=== PATIENT | male | born 1955 | race Caucasian/White ===

== ENCOUNTER 2017-12-28 06:59 | Day surgery (SDC) | payer OTHER ==
--- NOTE | 2017-12-26 13:53 | EKG ---
Test Date: 2017-12-26 Test Time: 13:04:47 [employer] Lineman: RUDY MEASUREMENT RESULTS: Intervals: Rate: 68 MD: QRSD: 92 QT: 372 QTc: 395 [place]: P: MD: QRS: 10 T: 140 INTERPRETIVE STATEMENTS: Atrial fibrillation Marked ST abnormality, possible lateral subendocardial injury Abnormal ECG Compared to ECG 02/19/2003 07:03:00 ST (T wave) deviation now present Sinus rhythm no longer present T-wave abnormality no longer present Electronically Signed On 12-26-17 13:53:02 CDT by Collins Haynes
--- NOTE | 2017-12-26 13:58 | RAD REPORT ---
EXAM DESCRIPTION: RAD - Chest Pa And Lat (2 Views) - 12/26/2017 1:50 pm CLINICAL HISTORY: preop Chest pain. COMPARISON: CHEST PA AND LAT 2 VIEW dated 05/24/2011; CHEST PA AND LAT 2 VIEW dated 05/04/2011; CHEST P A AND LAT 2 VIEW dated 04/27/2011; CHEST PA AND LAT 2 VIEW dated 07/28/2004 FINDINGS: The lungs are clear. The heart is mildly enlarged in size with changes of a prior sternoto my seen. No displaced fractures. IMPRESSION: Mild cardiomegaly.
[2017-12-26 14:02] LABS: Absolute Lymphocytes (CBC) 1.3 K/uL (0.7-4.9); Absolute Monocytes 0.6 K/uL (0.1-1.3); Absolute Neutrophil 4.2 K/uL (1.8-8.0); Basophils % 0.7 % (0-1.3); Eosinophils % 3.3 % (0-4.4); Hematocrit 43.8 % (39.6-49.0); Lymphocytes % 20.5 % (15.3-44.8); MCV 89.2 fL (80-100); MPV 8.4 fL (7.6-11.3); Monocytes % 10.1 % (3.3-12.3)
[2017-12-26 14:17] LABS: Protime INR 1.36
--- OUTSIDE RECORDS SUMMARY | 2017-12-28 07:04 | XMS REPORT ---
:1955 Author Organization [employer] Care Team Providers Name Role Phone CONCHITA SWENSON Provider Role Unavailable Encounters Encounter Location Date 10-21-2014 follow-up [place] Oct 23, 2014 Update medications Conchita Sw[facility], [place] Oct 23, 2014 CPE Conchita [place], [place] June 04, 2014 Lab Results Conchita [place], [place] June 06, 2014 Health Issue Conchita Sw[place], [place] Oct 21, 2014 Problems Problem Type Condition ICD-9 Code Onset Dates Condition Status Problem Allergic rhinitis 477.9 Active Problem Asthma 493.90 Active Social History Social History Element Qualifiers Date Reported Tobacco Use:Never . Are you a: never smoker Oct 21, 2014 Use of recreational / street drugs? . Answer: No Oct 21, 2014 Do you have pets? . Status: No Oct 21, 2014 Marital Status: . Oct 21, 2014 Caffeine intake? . Status: Yes, What type: Coffee, Oct 21, 2014 1 - 2 cup(s) a day Do you exercise? . Answer: Yes, Type: walking Oct 21, 2014 Do you drink alcohol? . 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
--- OUTSIDE RECORDS SUMMARY | 2017-12-28 07:04 | XMS REPORT ---
:1955 [facility] Providers Name Role Phone MARI HARRIS Provider Role Unavailable Allergies, Adverse Reactions, Alerts Substance Reaction Event Type all nuts anaphylaxis Non Drug Allergy potatoes respiratory issues Non Drug Allergy Encounters Encounter Location Date 10-21-2014 follow-up Con[place]ita Ru[place], [place] Oct 23, 2014 Update medications Conchita Ruiz [facility], [place] Oct 23, 2014 sick Conchita Ruiz [place], [place] Oct 21, 2014 sick Conchita Ruiz [place], [place] Jan 05, 2015 CPE Conchita Ruiz [place], [place] June 04, 2014 Lab Results Conchita Ruiz MD, [place] June 06, 2014 Health Issue Conchita Ruiz MD, [place] Oct 21, 2014 cold sx Conchita Ruiz [place], [place] May 11, 2015 Problems Problem Type Condition ICD-9 Code Onset Dates Condition Status Problem Unspecified asthma, J45.909 Active uncomplicated Problem Allergic rhinitis, unspecified J30.9 Active Problem 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, mild intermittent, with acute exacerbation Assessment Allergic rhinitis, unspecified J30.9 Active Assessment 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, mild intermittent, with acute exacerbation Assessment Sinusitis J32.9 Active Assessment Unspecified asthma, J45.909 Active uncomplicated Medications Medication Code System Code Instructions Start End Date Status Dosage Date Medrol (Anotnio) MEDISPAN 55832-88 4 MG Orally as May 10April Active as directed 56-04 directed 2015 Zyrtec Allergy MEDISPAN 99234-02 10 MG Orally Active 1 tablet as 04-43 Once a day needed Aspirin MEDISPAN 30489-18 81 MG Orally Active 1 tablet 14-07 Once a day Mucinex MEDISPAN 27332-02 600 MG Orally Active 1 tablet as 98-58 every 12 hrs needed Cefdinir MEDISPAN 43741-16 300 MG Orally May 10April Active 1 capsule 60-06 every 12 hrs 2015 Metoprolol Unknown 0 50 mg Orally Active 1 tablet Succinate twice a day (bid) [facility] 85377-62 250-50 MCG/DOSE Active 1 puff 96-00 Inhalation Twice a day Social History Social History Element Qualifiers Date Reported Tobacco Use: . Are you a: never smoker May 11, 2015 Use of recreational / street drugs? . Answer: No May 11, 2015 Do you have pets? . Status: No May 11, 2015 Marital Status: . May 11, 2015 Caffeine intake? . Status: Yes, What type: Coffee, May 11, 2015 1 - 2 cup(s) a day Do you exercise? . Answer: Yes, Type: walking May 11, 2015 Do you drink alcohol? . 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, 2015 Family history Qualifier Description Comment Date Reported Maternal Grandmother Comment not available May 11, 2015 Paternal Grandmother Comment not available May 11, 2015 Siblings alive Comment not available May 11, 2015 Maternal Grandfather Comment not available May 11, 2015 Children alive Comment not available May 11, 2015 Father alive DM, asthma May 11, 2015 Paternal Grandfather Comment not available May 11, 2015 Mother alive HTN, vertigo May 11, 2015 Other: Comment not available May 11, 2015 Vital Signs Date/Time: May 11, 2015 Blood Pressure Diastolic 70 mm Hg Blood Pressure Systolic 124 mm Hg Temperature 97.1 F Weight 262 lbs Height 74 in Summary Purpose eClinicalWorks Submission
--- OUTSIDE RECORDS SUMMARY | 2017-12-28 07:04 | XMS REPORT ---
:1955 [facility] Team Providers Name Role Phone CONCHITA SWENSON Provider Role Unavailable Encounters Encounter Location Date 10-21-2014 follow-up Conchita [place], [place] Oct 23, 2014 Update medications Conchita Swenson MD, [place] Oct 23, 2014 sick Conchita Sw[place] MD, [place] Oct 21, 2014 sick Conchita Swenson MD, [place] Jan 05, 2015 CPE Conchita Sw[place] MD, [place] June 04, 2014 med refills Conchita Swenson MD, [place] July 24, 2015 Lab Results Conchita Swenson MD, [place] June 06, 2014 Health Issue Conchita Sw[place] MD, [place] Oct 21, 2014 Re:RE:feet pain Conchita Sw[place], [place] July 23, 2015 cold sx Conchita Sw[place] MD, [place] May 11, 2015 feet pain Conchita Sw[place], [place] July 23, 2015 Problems Problem Type Condition ICD-9 Code Onset Dates Condition Status Problem Unspecified asthma, J45.909 Active uncomplicated Problem Allergic rhinitis, unspecified J30.9 Active Problem 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 Are you a: never smoker July 22, 2015 Use of recreational / street drugs? . Answer: No July 22, 2015 Do you have pets? . Status: No July 22, 2015 Marital Status: . July 22, 2015 Caffeine intake? . Status: Yes, What type: Coffee, July 22, 2015 1 - 2 cup(s) a day Do you exercise? . Answer: Yes, Type: walking July 22, 2015 Do you drink alcohol? . 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
--- OUTSIDE RECORDS SUMMARY | 2017-12-28 07:04 | XMS REPORT | Continuity of Care Document ---
:1955 Author Organization Interface Problems Problem Status Onset Classification Date Comments Source Date Reported Unspecified Active Problem 10/20/2015 2.16.840. asthma, 1.650069. uncomplicated 4.391.11. 81750 Allergic rhinitis, Active Problem 10/20/2015 2.16.840. unspecified 1.394768. 4.391.11. 57969 Reactive airways Active Problem 10/20/2015 2.16.840. dysfunction 1.209311. syndrome, mild 4.391.11. intermittent, with 71418 acute exacerbation Allergic rhinitis Active Problem 01/12/2015 2.16.840. 1.220076. 4.391.11. 16859 Asthma Active Problem 01/12/2015 2.16.840. 1.916769. 4.391.11. 68787 Strep pharyngitis Active Diagnosis 11/20/2014 2.16.840. 1.066565. 4.391.11. 37865 Acute serous Active Diagnosis 01/12/2015 2.16.840. otitis media of 1.188188. left ear, 4.391.11. recurrence not 14946 specified Sinusitis Active Diagnosis 05/13/2015 2.16.840. 1.170402. 4.391.11. 27415 Pain of left foot Active Diagnosis 07/27/2015 2.16.840. 1.949966. 4.391.11. 07281 Encounter for Active Diagnosis 07/27/2015 2.16.840. general adult 1.620549. medical 4.391.11. examination with 63518 abnormal findings Pain in right foot Active Diagnosis 07/27/2015 2.16.840. 1.580716. 4.391.11. 87199 Rhinosinusitis Active Diagnosis 10/20/2015 2.16.840. 1.794196. 4.391.11. 37839 Medications Medication Details Route Status Patient Ordering Order Source Instructions Provider Date Amoxicillin 1 tablet Orally Active 875 MG Orally [place] 2.16.84 every 12 hrs 016 0.1.113 883.4.3 91.11.2 6004 Advair Diskus 1 puff Inhalation Active 250-50 MCG/DOSE L.V. [facility] 2.16.84 Inhalation 016 0.1.113 Twice a day 883.4.3 91.11.2 6004 Meloxicam 1 tablet Orally Active 15 MG Orally L.V. [facility] 2.16.84 Once a day 016 0.1.113 883.4.3 91.11.2 6004 Medrol (Antonio) as Orally Active 4 MG Orally as [place]ARRIS .16. directed directed 016 0.1.113 883.4.3 91.11.2 6004 Cefdinir 1 capsule Orally Active 300 MG Orally [place] 2.16.84 every 12 hrs 016 0.1.113 883.4.3 91.11.2 6004 Cefdinir 1 capsule Orally Active 300 MG Orally [place] 2.16.84 twice a day 015 0.1.113 (bid) 883.4.3 91.11.2 6004 PredniSONE 1 tablet Orally Active 10 mg Orally [place] .16.84 with food twice a day 015 0.1.113 or milk (bid) 883.4.3 91.11.2 6004 Cefdinir 1 capsule Orally Active 300 MG Orally [facility] 2.16.84 every 12 hrs 015 0.1.113 883.4.3 91.11.2 6004 EpiPen as Intramuscular Active 1 MG/ML L.V. [facility] 04.14.83 directed Intramuscular 0.1.113 as directed 883.4.3 91.11.2 6004 Advair Diskus 1 puff Inhalation Active 250-50 MCG/DOSE [facility] 04.14.83 Inhalation 0.1.113 Twice a day 883.4.3 91.11.2 6004 ProAir HFA 2 puffs as Inhalation Active 108 (90 Base) L.V. [facility] 04.14.83 needed MCG/ACT 0.1.113 Inhalation 883.4.3 every 4 hrs 91.11.2 6004 Flonase 1 spray in Nasally Active 50 MCG/ACT [facility] 2.16.84 each Nasally Once a 0.1.113 nostril day 883.4.3 91.11.2 6004 Metoprolol 1 tablet Orally Active 50 mg Orally [place] 2.16.84 Succinate twice a day 0.1.113 (bid) 883.4.3 91.11.2 6004 Aspirin 1 tablet Orally Active 81 MG Orally [place] 2.16.84 Once a day 0.1.113 883.4.3 91.11.2 6004 Mucinex 1 tablet Orally Active 600 MG Orally [place] 2.16.84 as needed every 12 hrs 0.1.113 883.4.3 91.11.2 6004 Zyrtec 1 tablet Orally Active 10 MG Orally [place] 2.16.84 Allergy as needed Once a day 0.1.113 883.4.3 91.11.2 6004 Allergies, Adverse Reactions, Alerts Substance Category Reaction Severity Reaction Status Date Comments Source type Reported N.K.D.A. Adverse Info Not Adverse Active 2.16.84 Reaction Available Reaction 5 0.1.113 883.4.3 91.11.2 6004 all nuts Adverse anaphylaxis Adverse Active 2.16.84 Reaction Reaction 6 0.1.113 883.4.3 91.11.2 6004 potatoes Adverse respiratory Adverse Active 2.16.84 Reaction issues Reaction 6 0.1.113 883.4.3 91.11.2 6004 Immunizations Immunization Date Given Site Status Last Updated Comments Source FLUZONE 10/21/2014 completed 2.16.840.1 QUADRIVALENT .522255.4. INFLUENZA 391.11.260 04 Results Order Results Value Reference Date Interpretation Comments Source Name Range Vital Signs Vital Sign Value Date Comments Source Diastolic (mm Hg) 86 10/09/2015 2.16.840.1.13348 3.4.391.11.38056 Systolic (mm Hg) 126 10/09/2015 2.16.840.1.76194 3.4.391.11.58521 Temperature Oral (F) 96.5 F 10/09/2015 2.16.840.1.79331 3.4.391.11.18854 Weight 270 10/09/2015 2.16.840.1.63441 3.4.391.11.68891 Height 74 10/09/2015 2.16.840.1.95197 3.4.391.11.05660 Diastolic (mm Hg) 80 07/22/2015 2.16.840.1.34701 3.4.391.11.07516 Systolic (mm Hg) 120 07/22/2015 2.16.840.1.10958 3.4.391.11.32259 Temperature Oral (F) 97.4 F 07/22/2015 2.16.840.1.07854 3.4.391.11.68010 Weight 260 07/22/2015 2.16.840.1.93423 3.4.391.11.03411 Height 74 07/22/2015 2.16.840.1.41664 3.4.391.11.03993 Diastolic (mm Hg) 70 05/11/2015 2.16.840.1.06959 3.4.391.11.44906 Systolic (mm Hg) 124 05/11/2015 2.16.840.1.02818 3.4.391.11.54453 Temperature Oral (F) 97.1 F 05/11/2015 2.16.840.1.06011 3.4.391.11.98483 Weight 262 05/11/2015 2.16.840.1.31338 3.4.391.11.29178 Height 74 05/11/2015 2.16.840.1.75176 3.4.391.11.84787 Diastolic (mm Hg) 82 01/05/2015 2.16.840.1.69033 3.4.391.11.58352 Systolic (mm Hg) 126 01/05/2015 2.16.840.1.32658 3.4.391.11.55304 Temperature Oral (F) 96.8 F 01/05/2015 2.16.840.1.65486 3.4.391.11.71983 Weight 268 01/05/2015 2.16.840.1.36432 3.4.391.11.57458 Height 74 01/05/2015 2.16.840.1.95804 3.4.391.11.40645 Diastolic (mm Hg) 80 10/21/2014 2.16.840.1.80253 3.4.391.11.20579 Systolic (mm Hg) 132 10/21/2014 2.16.840.1.92683 3.4.391.11.49962 Temperature Oral (F) 97.9 F 10/21/2014 2.16.840.1.44685 3.4.391.11.08782 Weight 268 10/21/2014 2.16.840.1.77532 3.4.391.11.72885 Height 74 10/21/2014 2.16.840.1.75508 3.4.391.11.92211 Encounters Location Location Encounter Encounter Reason Attending ADM ND Status Source Details Type Number For Provider Date Date Visit [facility] CPE [id number] 06/04 06/04 2.16.84 Leela 92-40z8-c1q 0.1.113 MARILEE CORREA 0-6837zv704 883.4.3 bfe 91.11.2 6004 [place] CPE 6sj568a4-5u 06/04 06/04 2.16.84 Leela 92-2uc1-650 0.1.113 MARILEE CORREA b-z97v37790 883.4.3 15b 91.11.2 6004 [place] CPE 989k0tj6-75 06/04 06/04 2.16.84 Leela 8f-418d-ab4 0.1.113 MARILEE CORREA b-yhf60y899 883.4.3 967 91.11.2 6004 [place] CPE 20348x10-0s 06/04 06/04 2.16.84 Leela e2-4320-94f 0.1.113 MARILEE CORREA 6-crzlh5896 883.4.3 bd2 91.11.2 6004 [place] CPE vrby0904-25 06/04 06/04 2.16.84 Leela d9-478c-826 /2014 0.1.113 MD, [place] c-re6cq1655 883.4.3 1cd 91.11.2 6004 [place] CPE d92jqp04-47 06/04 06/04 2.16.84 Leela, b3-4383-a4b /2014 0.1.113 MD, PA d-nm706ur65 883.4.3 71d 91.11.2 6004 [place] CPE 032l04m8-48 06/04 06/04 2.16.84 Leela df-5e88-805 /2014 0.1.113 MD, PA f-uw88d5z1e 883.4.3 498 91.11.2 6004 [place] CPE 84w4ucf7-0j 06/04 06/04 2.16.84 Leela, fd-46s9-9e6 0.1.113 , PA 1-az58582yu 883.4.3 e85 91.11.2 6004 [place] CPE 53156e5w-y7 06/04 06/04 2.16.84 Leela, 9a-43aa-917 0.1.113 , PA 6-jl8u787i0 883.4.3 d9b 91.11.2 6004 [place] CPE y576a910-9i 06/04 06/04 2.16.84 Leela e7-4906-8ba 0.1.113 , PA 2-0wco8f5un 883.4.3 4fc 91.11.2 6004 [place] CPE 45jr4qj1-1u 06/04 06/04 2.16.84 Leela, 65-4396-a00 0.1.113 , PA 9-0188m60lr 883.4.3 11b 91.11.2 6004 [facility] Lab Results bd1953r0-90 06/06 06/06 2.16.84 Leela, 89-4838-889 0.1.113 , PA 4-4g07zw3bl 883.4.3 d38 91.11.2 6004 [facility] Lab Results 1p65u6dn-i9 06/06 06/06 2.16.84 Leela, a7-80k2-b0h 0.1.113 MD, PA brein-0566vxop0 883.4.3 089 91.11.2 6004 [facility] Lab Results i5v867nk-0y 06/06 06/06 2.16.84 Leela, a8-480e-b9d 0.1.113 MD, PA d-5ddq0n60d 883.4.3 9f3 91.11.2 6004 [facility] Lab Results 719a52p2-2r 06/06 06/06 2.16.84 Leela, ea-426a-9f8 0.1.113 MD, PA 0-06n0072h2 883.4.3 496 91.11.2 6004 [facility] Lab Results 489cn51r-ur 06/06 06/06 2.16.84 Le[place] f0-56s6-r3b 0.1.113 MD, PA a-83h70rqd6 883.4.3 eec 91.11.2 6004 [place] Lab Results 9153o4q9-97 06/06 06/06 2.16.84 Leela, 6b-9q03-le4 0.1.113 MD, PA 3-2556e2w89 883.4.3 c47 91.11.2 6004 [facility] Lab Results 8862cfx1-9q 06/06 06/06 2.16.84 Leela, 4f-465e-a55 0.1.113 MD, PA c-n9i726b48 883.4.3 f1e 91.11.2 6004 [facility] Lab Results 2f962w7e-62 06/06 06/06 2.16.84 Leela, 54-3b1g-78i 0.1.113 MD, PA 4-60l9c2522 883.4.3 e6e 91.11.2 6004 [facility] Lab Results 84h7569j-h2 06/06 06/06 2.16.84 Leela, 41-2cc3-z2a /2014 0.1.113 , PA 9-3527k0902 883.4.3 ee0 91.11.2 6004 [facility] Lab Results 58iq9zaj-y1 06/06 06/06 2.16.84 Leela 3a-4935-907 /2014 0.1.113 , PA e-9k0psvhyn 883.4.3 cd0 91.11.2 6004 [facility] Lab Results ksv352b7-0i 06/06 06/06 2.16.84 Leela f7-3j7o-76u 0.1.113 , PA 0-10331718g 883.4.3 37f 91.11.2 6004 [facility] Health Issue 095jfag2-72 10/21 10/21 2.16.84 Leela 69-0m5a-z34 0.1.113 , PA b-1b70g804u 883.4.3 2e6 91.11.2 6004 [facility] Issue 0dj2lt1d-o6 10/21 10/21 2.16.84 Leela e6-45ff-8a8 0.1.113 , PA f-gs24h7j40 883.4.3 f49 91.11.2 6004 [facility] Issue 5pxwn744-8v 10/21 10/21 2.16.84 Le[place] e4-5v96-dfq /2014 0.1.113 , PA f-638g3j369 883.4.3 86d 91.11.2 6004 [facility] Issue 27hm3a07-8o 10/21 10/21 2.16.84 Le[place] d4-8cg1-cd3 0.1.113 , PA c-30a1ae0m9 883.4.3 bbb 91.11.2 6004 [facility] Issue 731jjc05-o2 10/21 10/21 2.16.84 Leela f5-4v25-sak /2014 0.1.113 , PA 6-hy959zf14 883.4.3 84a 91.11.2 6004 [facility] Issue 6q6k29y8-t2 10/21 10/21 2.16.84 Leela, 93-4650-a42 /2014 0.1.113 , PA b-40273175a 883.4.3 610 91.11.2 6004 [facility] Issue 9c1rw099-xy 10/21 10/21 2.16.84 Leela 01-435f-aa6 /2014 0.1.113 MD PA a-12yeoq1w7 883.4.3 bb7 91.11.2 6004 [facility] Issue l90p61cm-r9 10/21 10/21 2.16.84 Le[place] ed-40fd-a59 0.1.113 , PA d-k7343jwn1 883.4.3 ffb 91.11.2 6004 [facility] Issue p9tx2b2y-ae 10/21 10/21 2.16.84 Leela 6a-4023-b40 0.1.113 MARILEE CORREA 1-795p94u8h 883.4.3 599 91.11.2 6004 [facility] Issue l9311227-8c 10/21 10/21 2.16.84 Leela b4-4210-841 0.1.113 MARILEE CORREA 7-3j6kxj0s9 883.4.3 085 91.11.2 6004 [facility] Health Issue 6iv773sa-23 10/21 10/21 2.16.84 Leela 21-4177-93a 0.1.113 MARILEE CORREA 6-m8hc4018v 883.4.3 5ea 91.11.2 6004 [place] sick 6m72r6on-93 10/21 10/21 2.16.84 Leela 77-4914-89c 0.1.113 MD, PA 1-8d7632g09 883.4.3 c70 91.11.2 6004 [place] sick 0n1s303p-bo 10/21 10/21 2.16.84 Leela, 24-73x7-3xa 0.1.113 , PA 5-579930n49 883.4.3 a59 91.11.2 6004 [place] sick ko7n1924-0m 10/21 10/21 2.16.84 [place] 1a-44z8-6s6 0.1.113 MD, PA d-tvj130365 883.4.3 a0b 91.11.2 6004 [place] sick 9y543m14-l2 10/21 10/21 2.16.84 [place] c6-40k3-rc8 0.1.113 , PA e-ql00svi49 883.4.3 e12 91.11.2 6004 [place] sick 47u293iq-pd 10/21 10/21 2.16.84 Le[place] 99-1o80-go2 0.1.113 , PA 6-540634808 883.4.3 a5a 91.11.2 6004 [facility] sick xa3ngnz5-2l 10/21 10/21 2.16.84 Leela, 22-4bbe-b46 0.1.113 , PA 0-mt565s968 883.4.3 65c 91.11.2 6004 [facility] sick p183d3iq-q1 10/21 10/21 2.16.84 [facility] 8b-4k5b-259 0.1.113 MD, PA f-snp4t6ja5 883.4.3 52e 91.11.2 6004 [facility] sick xec4v18o-63 10/21 10/21 2.16.84 [facility] 59-4caa-b7f 0.1.113 , PA c-ad4v2h743 883.4.3 226 91.11.2 6004 [facility] Update 183070bz-t2 10/23 10/23 2.16.84 Leela, medications 04-4dfb-b46 /2014 0.1.113 , PA 1-81t2m8cya 883.4.3 9ec 91.11.2 6004 [facility] Update 1a75v3e6-40 10/23 10/23 2.16.84 Leela, medications a2-4673-9ac 0.1.113 , PA 6-j816scv45 883.4.3 d58 91.11.2 6004 [facility] Update c6xry961-a8 10/23 10/23 2.16.84 Leela, medications cc-4138-ae0 0.1.113 , PA c-pw640ecj7 883.4.3 477 91.11.2 6004 [facility] Update 4j1g9698-eh 10/23 10/23 2.16.84 Leela, medications 59-424b-9be 0.1.113 , PA 1-42934n341 883.4.3 652 91.11.2 6004 [facility] Update j8035n01-74 10/23 10/23 2.16.84 Le[facility], medications cf-1z78-x8l /2014 0.1.113 MARILEE CORREA 1-mi938lec2 883.4.3 5e3 91.11.2 6004 [facility] Update b4l475kh-44 10/23 10/23 2.16.84 Leela, medications 7c-4bj6-u56 0.1.113 MD PA 5-32ks88tm1 883.4.3 4a2 91.11.2 6004 [facility] Update 294tk7r8-01 10/23 10/23 2.16.84 Leela, medications 4f-34a7-re3 0.1.113 MD PA f-596817424 883.4.3 f6d 91.11.2 6004 [place] Update 74dg9587-12 10/23 10/23 2.16.84 Leela, medications a1-4il6-x22 /2014 0.1.113 , PA 9-5b93367u5 883.4.3 ee8 91.11.2 6004 [place] Update q1yg5xcb-41 10/23 10/23 2.16.84 Leela, medications d5-6a6w-6zq /2014 0.1.113 , PA 7-z2748e369 883.4.3 867 91.11.2 6004 [place] Update b111a7he-10 10/23 10/23 2.16.84 Leela, medications e6-5qz7-1b6 /2014 0.1.113 , PA 5-474kzz186 883.4.3 f43 91.11.2 6004 [place] 10-21-2014 a10p13t6-91 10/23 10/23 2.16.84 Leela, follow-up 27-5kv2-370 0.1.113 , PA 6-h058307m0 883.4.3 f58 91.11.2 6004 [place] 10-21-2014 43474461-99 10/23 10/23 2.16.84 Leela, follow-up 7b-6k88-raw 0.1.113 , PA b-e7fk7f90a 883.4.3 ffd 91.11.2 6004 [place] 10-21-2014 mli82791-h5 10/23 10/23 2.16.84 Leela, follow-up de-4356-87d 0.1.113 , PA 5-3x2166qxl 883.4.3 813 91.11.2 6004 [place] 10-21-2014 h3e7bhgp-zj 10/23 10/23 2.16.84 Leela, follow-up 2f-82t3-09o 0.1.113 , PA f-5v6gs6878 883.4.3 13d 91.11.2 6004 [place] 10-21-2014 2j0z856x-5l 10/23 10/23 2.16.84 Leela, follow-up 29-0i06-556 /2014 0.1.113 , PA a-9321m6443 883.4.3 e2c 91.11.2 6004 [place] 10-21-2014 5za42to1-04 10/23 10/23 2.16.84 Leela, follow-up 0a-0io3-d1t 0.1.113 , PA kenneth-292799xhw 883.4.3 37e 91.11.2 6004 [place] 10-21-2014 4sj565b6-hg 10/23 10/23 2.16.84 Leela, follow-up 89-2f09-8h5 0.1.113 , MARILEE cooper-186m1wg72 883.4.3 f06 91.11.2 6004 [place] 10-21-2014 9f64a63q-q2 10/23 10/23 2.16.84 Leela, follow-up 09-41q3-fm8 0.1.113 , MARILEE b-0a5558fle 883.4.3 9ee 91.11.2 6004 [place] 10-21-2014 m0q83wvf-kr 10/23 10/23 2.16.84 Leela, follow-up 60-4943-805 0.1.113 MD PA 7-4i71v157w 883.4.3 53a 91.11.2 6004 [place] 10-21-2014 rlj0kj2y-ao 10/23 10/23 2.16.84 Leela, follow-up c5-63u6-gx6 0.1.113 MD PA 8-32606170t 883.4.3 yuridia 91.11.2 6004 [place] Update s5z3519l-m0 10/23 10/23 2.16.84 Leela, medications 44-4714-a82 /2014 0.1.113 MD PA 7-831818039 883.4.3 58e 91.11.2 6004 [place] 10-21-2014 me8x0x49-94 10/23 10/23 2.16.84 Leela, follow-up 2d-1a9m-m99 0.1.113 , PA 5-7p95i72t8 883.4.3 62f 91.11.2 6004 [place] sick 35sb6160-v8 01/05 01/05 2.16.84 Leela, 0f-6y35-426 0.1.113 , PA 7-8p35o920x 883.4.3 a64 91.11.2 6004 [place] sick 026d71n1-7c 01/05 01/05 2.16.84 Leela, 43-444b-8bf 0.1.113 , PA 6-38298c036 883.4.3 cad 91.11.2 6004 [place] sick 7490294t-14 01/05 01/05 2.16.84 Leela, 49-12s2-807 0.1.113 , PA 6-6k33i350r 883.4.3 1b8 91.11.2 6004 [place] sick 7toooep6-z5 01/05 01/05 2.16.84 Leela be-0it3-54a 0.1.113 , PA c-91q9xu9qd 883.4.3 886 91.11.2 600 [facility] sick wlt82281-z1 01/05 01/05 2.16.84 [place], b5-59t8-y26 0.1.113 MD, PA a-381k8b108 883.4.3 87b 91.11.2 6004 [place] sick 0e465962-1d 01/05 01/05 2.16.84 [place] c4-43r6-1u1 0.1.113 , PA d-791z00g07 883.4.3 44f 91.11.2 6004 [place] sick 3oq7u5hk-8l 01/05 01/05 2.16.84 [place], 9a-5w0f-pc0 /2014 0.1.113 MD, PA 3-j8b489m4e 883.4.3 b55 91.11.2 6004 [place] cold sx q04i526x-1h 05/10 05/10 2.16.84 [place], 18-4187-a3b /2015 0.1.113 , PA f-656gze76v 883.4.3 b7a 91.11.2 6004 [place] cold sx m5j4l573-83 05/10 05/10 2.16.84 [place], a9-475f-bc1 /2015 0.1.113 , PA 3-7714d1hg6 883.4.3 5e6 91.11.2 6004 [place] cold sx l918c822-20 05/10 05/10 2.16.84 Le[place], 11-478e-84a 0.1.113 , PA 3-30bt371w2 883.4.3 098 91.11.2 6004 [place] cold sx 868v5725-jl 05/10 05/10 2.16.84 Leela 58-4931-811 /2015 0.1.113 , PA 8-8h5423376 883.4.3 c3c 91.11.2 6004 [place] cold sx 069g35d0-te 05/10 05/10 2.16.84 [facility] 5e-5y30-54p /2015 0.1.113 MD, PA e-4g4281222 883.4.3 e36 91.11.2 6004 [place] cold sx t3e7ku23-z2 05/10 05/10 2.16.84 [facility] 13-4174-a6f /2015 0.1.113 , PA a-j65k189n2 883.4.3 0d3 91.11.2 6004 [place] CPE/Labwork 2c9t94x1-22 07/21 07/21 2.16.84 [facility] fd-4848-814 /2015 0.1.113 , PA 5-v94q061zu 883.4.3 d0c 91.11.2 6004 [place] CPE/Labwork 74184285-9d 07/21 07/21 2.16.84 [place], 94-439a-b00 /2015 0.1.113 , PA 8-45w52k1r1 883.4.3 7aa 91.11.2 6004 [place] feet pain 0y0i4kbf-42 07/22 07/22 2.16.84 [facility], d0-7m5q-x53 /2015 0.1.113 , PA 2-3305uu87h 883.4.3 f27 91.11.2 6004 [place] feet pain 30s61r7m-39 07/22 07/22 2.16.84 [place], 06-401a-b1b /2015 0.1.113 , PA f-037y33c57 883.4.3 66c 91.11.2 6004 [place] feet pain e2rgwb04-7o 07/22 07/22 2.16.84 [place], 3e-39u8-t16 /2015 0.1.113 , PA 4-w28q4h79d 883.4.3 3e8 91.11.2 6004 [place] feet pain buy68n7f-1h 07/22 07/22 2.16.84 [place], f1-4939-80a /2015 0.1.113 , PA 9-4cbkh669u 883.4.3 55f 91.11.2 6004 [place] feet pain 89v968e1-81 07/22 07/22 2.16.84 [place], 31-81y4-3sc /2015 0.1.113 , PA 5-c189356l3 883.4.3 a3f 91.11.2 6004 [place] Re:RE:feet t00qo139-81 07/23 07/23 2.16.84 [place], pain 3e-4071-9f0 /2015 0.1.113 , PA 6-015j47hzy 883.4.3 223 91.11.2 6004 [place] Re:RE:feet 188zk730-9q 07/23 07/23 2.16.84 [place], pain 97-491d-a5b 0.1.113 , PA 1-6bn9r0y2g 883.4.3 427 91.11.2 6004 [place] Re:RE:feet 20yh9085-6j 07/23 07/23 2.16.84 [place], pain 50-4baf-ba2 /2015 0.1.113 MARILEE CORREA 6-5481686w5 883.4.3 272 91.11.2 6004 [place] Re:RE:feet 0644nv7a-b8 07/23 07/23 2.16.84 Leela, pain [id number] /2015 0.1.113 , MARILEE [id number] 883.4.3 05b 91.11.2 6004 [place] med refills [id number] 07/23 07/23 2.16.84 Leela, [id number] 0.1.113 , MARILEE [id number] 883.4.3 a40 91.11.2 6004 [place] med refills [id number] 07/23 07/23 2.16.84 Leela [id number] /2015 0.1.113 , MARILEE [id number] 883.4.3 544 91.11.2 6004 [place] med refills [id number] 07/23 07/23 2.16.84 Leela [id number] /2015 0.1.113 MARILEE CORREA [id number] 883.4.3 486 91.11.2 6004 [place] med refills [id number] 07/23 07/23 2.16.84 Leela [id number] 0.1.113 MARILEE CORREA [id number] 883.4.3 3ea 91.11.2 6004 [place] Head [id number] 10/08 10/08 2.16.84 shad Ruiz [id number] /2015 0.1.113 MARILEE CORREA [id number] 883.4.3 f00 91.11.2 6004 Procedures Procedure Code Date Perfomer Comments Source
--- OUTSIDE RECORDS SUMMARY | 2017-12-28 07:04 | XMS REPORT ---
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
--- OUTSIDE RECORDS SUMMARY | 2017-12-28 07:04 | XMS REPORT ---
:1955 [facility] Team Providers Name Role Phone CONCHITA SWENSON Provider Role Unavailable Allergies, Adverse Reactions, Alerts Substance Reaction Event Type N.K.D.A. Info Not Available Non Drug Allergy Encounters Encounter Location Date 10-21-2014 [place]up [place] Oct 23, 2014 Update medications [place], [place] Oct 23, 2014 sick [place]ita [place], [place] Oct 21, 2014 CPE [place], [place] June 04, 2014 Lab Results Conchita Sw[place], [place] June 06, 2014 Health Issue [place]ita [place], [place] Oct 21, 2014 Problems Problem Type Condition ICD-9 Code Onset Dates Condition Status Problem Allergic rhinitis 477.9 Active Assessment Strep pharyngitis 034.0 Active Problem Asthma 493.90 Active Medications Medication Code System Code Instructions Start End Date Status Dosage Date Advair Diskus MEDISPAN 61439-73 250-50 MCG/DOSE Active 1 puff 96-00 Inhalation Twice a day Flonase MEDISPAN 76804-06 50 MCG/ACT Active 1 spray in 53-01 Nasally Once a each day nostril Metoprolol Unknown 0 Orally Active Unknown Succinate Cefdinir MEDISPAN 31428-28 300 MG Orally Oct 21Oct 31, Active 1 capsule 60-06 every 12 hrs 2014 2014 Aspirin MEDISPAN 77807-02 81 MG Orally Active 1 tablet 14-07 Once a day Social History Social History Element [...] Type: Socially Oct 21, 2014 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
--- OUTSIDE RECORDS SUMMARY | 2017-12-28 07:04 | XMS REPORT ---
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, mild intermittent, with acute exacerbation Medications Medication Code System Code Instructions Start End Date Status Dosage Date Mucinex MEDISPAN 00807-89 600 MG Orally Active 1 tablet as 98-58 every 12 hrs needed Cefdinir MEDISPAN 21605-89 300 MG Orally Jan 05Jan 15, Active 1 capsule 60-06 twice a day 2014 2014 (bid) PredniSONE Unknown 0 10 mg Orally Jan 05Jan 10, Active 1 tablet twice a day 2014 2014 with food (bid) or milk Metoprolol Unknown 0 50 mg Orally Active 1 tablet Succinate twice a day (bid) Zyrtec Allergy MEDISPAN 74250-97 10 MG Orally Active 1 tablet as 04-43 Once a day needed Aspirin MEDISPAN 57525-89 81 MG Orally Active 1 tablet 14-07 Once a day Advair Diskus MEDISPAN 87281-53 250-50 MCG/DOSE Active 1 puff 96-00 Inhalation Twice a day Social History Social History Element Qualifiers Date Reported Tobacco Use: . Are you a: never smoker Jan 05, 2015 Use of recreational / street drugs? . Answer: No Jan 05, 2015 Do you have pets? . Status: No Jan 05, 2015 Marital Status: . Jan 05, 2015 Caffeine intake? . Status: Yes, What type: Coffee, Jan 05, 2015 1 - 2 cup(s) a day Do you exercise? . Answer: Yes, Type: walking Jan 05, 2015 Do you drink alcohol? . 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, 2015 Family history Qualifier Description Comment Date Reported Maternal Grandmother Comment not available Jan 05, 2015 Paternal Grandmother Comment not available Jan 05, 2015 Siblings alive Comment not available Jan 05, 2015 Maternal Grandfather Comment not available Jan 05, 2015 Children alive Comment not available Jan 05, 2015 Father alive DM, asthma Jan 05, 2015 Paternal Grandfather Comment not available Jan 05, 2015 Mother alive HTN, vertigo Jan 05, 2015 Other: Comment not available Jan 05, 2015 Vital Signs Date/Time: Jan 05, 2015 Blood Pressure Diastolic 82 mm Hg Blood Pressure Systolic 126 mm Hg Temperature 96.8 F Weight 268 lbs Height 74 in Summary Purpose eClinicalWorks Submission
--- OUTSIDE RECORDS SUMMARY | 2017-12-28 07:04 | XMS REPORT ---
:1955 [facility] Team Providers Name Role [...] rhinitis 477.9 Active Problem Asthma 493.90 Active Medications Medication Code System Code Instructions Start End Date Status Dosage Date Advair Diskus MEDISPAN 76036-93 250-50 MCG/DOSE Active 1 puff 96-00 Inhalation Twice a day Aspirin MEDISPAN 67341-14 81 MG Orally Active 1 tablet 14-07 Once a day Cefdinir MEDISPAN 12919-59 300 MG Orally Oct 21Oct 31, Active 1 capsule 60-06 every 12 hrs 2014 2014 Flonase MEDISPAN 55573-56 50 MCG/ACT Active 1 spray in 53-01 Nasally Once a each day nostril Metoprolol Unknown 0 50 mg Orally Active 1 tablet Succinate twice a day (bid) Zyrtec Allergy MEDISPAN 02920-66 10 MG Orally Active 1 tablet as 04-43 Once a day needed Social History Social History Element Qualifiers Date [...] Type: Socially Oct 21, 2014 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
--- OUTSIDE RECORDS SUMMARY | 2017-12-28 07:04 | XMS REPORT ---
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
--- OUTSIDE RECORDS SUMMARY | 2017-12-28 07:05 | XMS REPORT ---
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
--- OUTSIDE RECORDS SUMMARY | 2017-12-28 07:05 | XMS REPORT ---
:1955 Author Organization eClinicalWorks Care Team Providers Name Role Phone DIANE BOURNE Provider Role Unavailable Allergies, Adverse Reactions, Alerts [...] Conchita Ruiz MD, PA Oct 21, 2014 Re:RE:feet pain Conchita Ruiz MD, PA July 23, 2015 cold sx Conchita Ruiz MD, PA May 11, 2015 feet pain Conchita Ruiz MD, PA July 23, 2015 Head congestion Conchita Ruiz MD, PA Oct 09, 2015 med refills Conchita Ruiz MD, PA July 24, 2015 CPE/Labwork Conchita Ruiz MD, PA July 22, 2015 Problems Problem Type Condition ICD-9 Code Onset Dates Condition Status Problem Unspecified asthma, J45.909 Active uncomplicated Problem Allergic rhinitis, unspecified J30.9 Active Problem 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, mild intermittent, with acute exacerbation Assessment Rhinosinusitis J32.9 Active Medications Medication Code System Code Instructions Start End Status Dosage Date Date Meloxicam MEDISPAN 87434-69 15 MG Orally Once July 22Oct 20, Active 1 tablet 99-01 a day 2015 2015 Aspirin MEDISPAN 28434-78 81 MG Orally Once Active 1 tablet 14-07 a day ProAir HFA MEDISPAN 98647-34 108 (90 Base) Active 2 puffs as 51-85 MCG/ACT needed Inhalation every 4 hrs Advair Diskus MEDISPAN 00450-97 250-50 MCG/DOSE September 14, Active 1 puff 96-00 Inhalation Twice 2015 a day EpiPen Unknown 0 1 MG/ML Active as directed Intramuscular as directed Metoprolol Unknown 0 50 mg Orally Active 1 tablet Succinate twice a day (bid) Amoxicillin MEDISPAN 50344-30 875 MG Orally Oct 08Oct 18, Active 1 tablet 64-01 every 12 hrs 2015 2015 Social History Social History Element Qualifiers Date Reported Tobacco Use: . Are you a: never smoker Oct 09, 2015 Use of recreational / street drugs? . Answer: No Oct 09, 2015 Do you have pets? . Status: No Oct 09, 2015 Marital Status: . Oct 09, 2015 Caffeine intake? . Status: Yes, What type: Coffee, Oct 09, 2015 1 - 2 cup(s) a day Do you exercise? . Answer: Yes, Type: walking Oct 09, 2015 Do you drink alcohol? . 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, 2015 Family history Qualifier Description Comment Date Reported Maternal Grandmother Comment not available Oct 09, 2015 Paternal Grandmother Comment not available Oct 09, 2015 Siblings alive Comment not available Oct 09, 2015 Maternal Grandfather Comment not available Oct 09, 2015 Children alive Comment not available Oct 09, 2015 Father alive DM, asthma Oct 09, 2015 Paternal Grandfather Comment not available Oct 09, 2015 Mother alive HTN, vertigo Oct 09, 2015 Other: Comment not available Oct 09, 2015 Vital Signs Date/Time: Oct 09, 2015 Blood Pressure Diastolic 86 mm Hg Blood Pressure Systolic 126 mm Hg Temperature 96.5 F Weight 270 lbs Height 74 in Summary Purpose eClinicalWorks Submission
--- OUTSIDE RECORDS SUMMARY | 2017-12-28 07:05 | XMS REPORT ---
:1955 [facility] [place] Care Team Providers Name Role Phone CONCHITA SWENSNO Provider Role Unavailable Allergies, Adverse Reactions, Alerts [...] Conchita Swenson MD, PA June 06, 2014 CPE/Labwork Conchita Swenson MD, PA July 22, 2015 Health Issue Conchita Swenson MD, PA Oct [...] syndrome, mild intermittent, with acute exacerbation Assessment Pain of left foot M79.672 Active Assessment Encounter for general adult Z00.01 Active medical examination with abnormal findings Assessment Pain in right foot M79.671 Active Medications Medication Code System Code Instructions Start End Date Status Dosage Date EpiPen Unknown 0 1 MG/ML Active Unknown Intramuscular Aspirin MEDISPAN 83936-27 81 MG Orally Once Active 1 tablet 14-07 a day ProAir HFA MEDISPAN 04888-28 108 (90 Base) Active 2 puffs as 51-85 MCG/ACT needed Inhalation every 4 hrs Advair Diskus MEDISPAN 38082-99 250-50 MCG/DOSE Active 1 puff 96-00 Inhalation Twice a day Metoprolol Unknown 0 50 mg Orally Active 1 tablet Succinate twice a day (bid) Social History Social History Element Qualifiers Date [...] Type: Socially July 22, 2015 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
[2017-12-28] MEDS ORDERED: NA CHLORIDE 0.9% 500 ML ONE (07:15)
[2017-12-28] MEDS ORDERED: LIDOCAINE 1% MPF 5 ML VIAL ONE (07:16)
[2017-12-28] MEDS ORDERED: MIDAZOLAM HCL 5 MG/5 ML INJ ONE (07:43)
--- NOTE | 2017-12-28 18:49 | OP ---
Surgeon: Collins Haynes MD Structural Mill Supervisor: Ms. Aspen Cruz. Admitted to my service as an outpatient to the slab grinder on 12/28/2017. Reason For Admission: Atrial fibrillation. Procedure Performed: Direct current cardioversion. Procedure In Detail: The patient was brought to the slab grinder. Cardioversion pads were placed approp riately anteriorly and posteriorly. He received 7 mg of Versed for IV sedation. He received 1 shock of 100 joules and converted to sinus rhythm. There were no complications. Postoperative Diagnosis: Status post successful cardioversion of atrial fibrillation to sinus rhythm . The patient is already on Eliquis and a beta-edie. I am going to have him stop the beta-edie a nd start a prescription for Multaq 400 mg 1 p.o. b.i.d., and I will see him in the office in 2 weeks. He can go home after he wakes up. Total conscious sedation was 30 minutes. JENI/RAOUL Voice ID: [id number] Report ID: [id number]
--- NOTE | 2017-12-28 22:11 | EKG ---
Test Date: 2017-12-28 Test Time: 08:02:44 Turn Machine Operator: KERRY MEASUREMENT RESULTS: Intervals: Rate: 65 CO: 248 QRSD: 86 QT: 394 QTc: 409 [place]: P: 0 CO: 248 QRS: 12 T: 129 INTERPRETIVE STATEMENTS: Sinus rhythm with 1st degree AV block Possible Left atrial enlargement ST & T wave abnormality, consider lateral ischemia Abnormal ECG Compared to ECG 12/26/2017 13:04:47 First degree AV block now present Possible ischemia now present Atrial fibrillation no longer present ST (T wave) deviation still present Electronically Signed On 12-28-17 22:10:39 CDT by Thomas Euceda
== END 2017-12-28 09:30 | disposition home health service (06) ==
LOC: CCL 06:59
PROC: 5A2204Z Restoration of Cardiac Rhythm, Single (ICD-10-PCS; principal; 2017-12-28)
DX: I48.91 Unspecified atrial fibrillation (principal); Z91.018 Allergy to other foods
CPT/HCPCS: 36415; 71046; 80048; 85025; 85610; 85730; 92960; 93005; J2250